=== PATIENT | female | born 1945 | race Caucasian/White ===

== ENCOUNTER 2023-04-14 01:24 | Emergency (ER) | payer MEDICARE, SELFPAY ==
[2023-04-14] VITALS (7 sets, daily range): BP systolic 142–169; BP diastolic 62–70; PULSE 72–91; RESP 16–23; TEMP 37.2; O2SAT 95–98
--- NOTE | ~2023-04-14 | XR_ITS ---
Portable chest x-ray Comparison: None Clinical History: Shortness of breath Findings: Lungs are clear, without focal consolidation or pleural effusion. Cardiomediastinal silho uette is unremarkable. Bones and soft tissues are unremarkable. Impression: Clear lungs. Reviewed, dictated and finalized at location . E EXAMINER Impression: Clear lungs.
[2023-04-14 03:00] LABS: Influenza A QL RT-PCR Negative (Negative); Influenza B QL RT-PCR Negative (Negative); RSV RNA, RT-PCR Positive (Negative); SARS-CoV-2 RNA PCR Negative (Negative)
[2023-04-14] MEDS: ALBUTEROL SULFATE NEB 2.5 MG/3 ML INH INHALATION (03:40)
--- NOTE | 2023-04-14 05:04 | ED.GENADULT ---
HPI - General Adult General Chief complaint: Upper Respiratory Infection Stated complaint: fever Time Seen by Provider: 04/14/23 02:58 History of Present Illness HPI narrative: 78-year-old female presents to the emergency department for evaluation cough and congestion with associated body aches. Patient reports she has had some associated diarrhea as well. Upon arrival to the emergency department patient denies any chest pain or shortness of breath. Related Data Allergies Allergy/AdvReac Type Severity Reaction Status Date / Time Penicillins Allergy Intermediate Hives / Verified 08/22/17 15:02 Red Face erythromycin base Allergy Mild Nausea and Verified 08/22/17 15:02 Vomiting Sulfa (Sulfonamide Allergy Mild Nausea and Verified 08/22/17 15:02 Antibiotics) Vomiting Review of Systems Review of Systems: All systems reviewed & are unremarkable except as noted in HPI and below Exam Narrative: APPEARANCE: Well appearing, no pain, no distress, well-nourished. HEAD: normocephalic, atraumatic. EYES: PERRLA/EOMI, conjunctivae clear. NOSE: Normal no drainage EARS:TMS clear with good light reflex. THROAT: Pharynx clear, no exudate. NECK: Supple. No adenopathy, no masses. RESPIRATORY: Airway patent, respirations nonlabored. Clear to auscultation bilaterally, no rales, rhonchi, wheezing. CARDIOVASCULAR: Regular rate and rhythm without murmurs rubs or gallops. ABDOMINAL: Soft, nontender, nondistended, normal bowel sounds MUSCULOSKELETAL: Moves all extremities. Strength/ROM intact, No edema, No calf tenderness. NEURO: Alert. Cranial nerves II through XII intact. Grossly SKIN: Warm, dry. Normal Color Course Course Emergency Course: 78-year-old female presenting to the emergency department for evaluation of body aches with cough and fatigue. Patient did test positive for RSV. Chest x-ray shows a viral pattern. Patient was afebrile with normal vital signs and saturating well on room air. Patient was provided a prescription for albuterol and Tessalon for symptom control. Patient was encouraged to have close follow-up with her primary care physician. All questions concerns were addressed patient was well-appearing at time of discharge. Vital Signs Vital signs: Vital Signs Temperature 98.9 F 04/14/23 01:29 Pulse Rate 91 04/14/23 01:29 Respiratory Rate 20 04/14/23 01:29 Blood Pressure 169/69 H 04/14/23 01:29 Pulse Oximetry 98 04/14/23 01:29 Oxygen Delivery Room Air 04/14/23 01:29 Temperature 98.9 F 04/14/23 03:42 Pulse Rate 77 04/14/23 05:35 Respiratory Rate 23 H 04/14/23 05:35 Blood Pressure 142/62 H 04/14/23 05:35 Pulse Oximetry 98 04/14/23 05:35 Oxygen Delivery Room Air 04/14/23 05:26 Medical Decision Making Differential Diagnosis Differential Diagnosis: COVID, RSV, influenza, pneumonia Vital Signs Vital Signs: Vital Signs Temperature 98.9 F 04/14/23 01:29 Pulse Rate 91 04/14/23 01:29 Respiratory Rate 20 04/14/23 01:29 Blood Pressure 169/69 H 04/14/23 01:29 Pulse Oximetry 98 04/14/23 01:29 Oxygen Delivery Room Air 04/14/23 01:29 Temperature 98.9 F 04/14/23 03:42 Pulse Rate 77 04/14/23 05:35 Respiratory Rate 23 H 04/14/23 05:35 Blood Pressure 142/62 H 04/14/23 05:35 Pulse Oximetry 98 04/14/23 05:35 Oxygen Delivery Room Air 04/14/23 05:26 Lab Data Labs: Lab Results 04/14/23 Range/Units 02:19 Influenza A (RT-PCR) Negative (Negative) Influenza B (RT-PCR) Negative (Negative) RSV (RT-PCR) Positive A (Negative) SARS-CoV-2 RNA (RT-PCR) Negative (Negative) Discharge Plan Discharge Clinical Impression: RSV infection Patient Disposition: Home, Self-Care Condition: Stable Instructions: Antibiotic Form, RSV (Respiratory Syncytial Virus) Infection (ED) Additional Instructions: Tylenol and ibuprofen for pain control and for body aches. Albuterol inhaler for shortness of mukesh
== END 2023-04-14 05:35 | disposition home or self-care (01) ==
PROVIDERS: Emergency Provider Emergency Medicine; PCP Family Medicine
DX: J22 Unspecified acute lower respiratory infection (principal); B97.4 Respiratory syncytial virus as the cause of diseases classified elsewhere; Z20.822 Contact with and (suspected) exposure to COVID-19
CPT/HCPCS: 71045; 87637; 94640; 99283